=== PATIENT | female | born 1985 | race African-American/Black ===

== ENCOUNTER 2017-09-28 10:20 | Emergency (ER) | payer OTHER ==
[~2017-09-28] VITALS: Ht 152.4 cm; Wt 78.0 kg
[~2017-09-28 10:20] MED LIST: CLINTAB7 PO; MACR100C PO; Z.0.BCPILL PO
[2017-09-28 10:22] VITALS: BP 138/95; PULSE 82; RESP 16; TEMP 98.3; O2SAT 99
[2017-09-28 11:43] LABS: BACTERIA, URINE MOD /hpf; BLOOD, URINE SMALL (NEG); GLUCOSE,URINE NEG (NEG); KETONE, URINE NEG (NEG); NITRITE,URINE NEG (NEG); PH, URINE 6.5 (5.0-8.5); SQUAMOUS EPITHELIAL CELL URINE 31 /hpf (0-5); URINE COLOR LIGHT-YELLOW (YELLW/STRAW)
--- NOTE | 2017-09-28 12:57 | PD ---
HPI . left eye irritation, possible yeast infection Chief Complaint: Eye Problems/Injury Time Seen by Provider: 11:04 Travel History International Travel<30 days: No Contact w/Intl Traveler<30days: No Traveled to known affect area: No History of Present Illness HPI 32 year old female patient presents to the emergency department for evaluation of left eye irritation and possible yeast infection. Patient is a contact lens wearer. She denies any eye trauma or injury. She states her eye became irritated yesterday. Patient also reports yellow vaginal discharge and vaginal itchiness since last . Patient denies any new sexual partners. She is and they have unprotected sex regularly. Patient's only major medical history is asthma and she doesn't take any daily medications. PFSH Past Medical History Asthma: Yes Diminished Hearing: No Gastrointestinal Disorders: Yes (GB DISEASE) Respiratory: Yes (Asthma) ?: Not Past Surgical History Cholecystectomy: Yes Social History Alcohol Use: Yes (RARE) Tobacco Use: No Substance Use: No Allergies-Medications (Allergen,Severity, Reaction): Coded Allergies: No Known Allergies (Verified , 01/07/16) Reported Meds & Prescriptions Reported Meds & Active Scripts Active Review of Systems Except as stated in HPI: all other systems reviewed are Neg Physical Exam Narrative GENERAL: Well-nourished, well-developed 32 year old female patient in no acute distress. Nontoxic appearing. SKIN: Focused skin assessment warm/dry. HEAD: Normocephalic. Atraumatic. EYES: Left eye injected. Fluorescein dye uptake located between 12 o'clock and 1 o'clock over the iris, not in the central vision. PERRLA demonstrated, extraocular motions intact bilaterally. Visual acuity: Right eye 20/25, left eye 20/30 NECK: Supple, trachea midline. No JVD or lymphadenopathy. CARDIOVASCULAR: Regular rate and rhythm without murmurs, gallops, or rubs. RESPIRATORY: Breath sounds equal bilaterally. No accessory muscle use. GENITOURINARY: Normal external genitalia without lesions or erythema. Vaginal vault with yellow frothy drainage. Cervical os was closed. No cervical motion tenderness. Uterus nontender and nonenlarged. Bilateral adnexa nontender without masses. GASTROINTESTINAL: Abdomen soft, non-tender, nondistended. MUSCULOSKELETAL: No cyanosis, or edema. BACK: Nontender without obvious deformity. No CVA tenderness. Data Data Last Documented VS Vital Signs Date Time Temp Pulse Resp B/P (MAP) Pulse Ox O2 Delivery O2 Flow Rate FiO2 09/28/17 10:22 98.3 82 16 138/95 (109) 99 Orders Orders Ua Includes Microscopic (09/28/17 10:32) Ed Urine Pregnancytest Poc (09/28/17 10:32) Gc And Chlamydia Pcr (09/28/17 11:39) Wet Prep Profile (09/28/17 11:39) Proparacaine 0.5% Opth Soln (Alcaine 0.5 (09/28/17 13:00) Azithromycin Powd Pack (Zithromax Powd P (09/28/17 13:15) Ceftriaxone Inj (Rocephin Inj) (09/28/17 13:15) Lidocaine 1% Inj (50 Ml) (Xylocaine 1% I (09/28/17 13:15) Metronidazole (Flagyl) (09/28/17 13:15) Moxifloxacin 0.5% Opht Soln (Vigamox 0.5 (09/28/17 13:15) Labs Laboratory Tests Test 09/28/17 11:20 09/28/17 12:40 Urine Color LIGHT-YELLOW Urine Turbidity HAZY Urine pH 6.5 Urine Specific [place] 1.006 Urine Protein TRACE mg/dL Urine Glucose (UA) NEG mg/dL Urine Ketones NEG mg/dL Urine Occult Blood SMALL Urine Nitrite NEG Urine Bilirubin NEG Urine Urobilinogen LESS THAN 2.0 MG/DL Urine Leukocyte Esterase LARGE Urine RBC 48 /hpf Urine WBC 35 /hpf Urine Squamous Epithelial Cells 31 /hpf Urine Bacteria MOD /hpf Clue Cells (Wet Prep) NONE SEEN Vaginal Trichomonas (Wet Prep) PRESENT Vaginal Yeast (Wet Prep) NONE SEEN MDM Medical Decision Making Medical Screen Exam Complete: Yes Emergency Medical Condition: Yes Differential Diagnosis Differential diagnoses include but not limited to corneal abrasion, foreign body in the left eye, keratitis, yeast infection, STI Narrative Course 32-year-old female patient presents to emergency room for evaluation of yellow vaginal discharge and left eye irritation. Pelvic exam performed with nurse at bedside and cultures obtained and sent to lab. Proparacaine administered to left eye and fluorescein and Wood lamp used to evaluate left eye. Fluorescein dye uptake noted between the 12 o'clock and 1 o'clock position over the iris, not over the central vision. Pelvic cultures came back positive for Trichomonas. Patient will be treated with 2 g Flagyl by mouth in the ED and treated empirically with Rocephin and azithromycin for STI prophylaxis. Patient is a contact lens wearer. Patient will be discharged home with prescription for moxifloxacin opth solution for corneal abrasion and instructions to follow up with the local health department for further testing. Diagnosis Primary Impression: Trichomonas infection Additional Impression: Corneal abrasion Qualified Codes: S05.02XA - Injury of conjunctiva and corneal abrasion without foreign body, left eye, initial encounter Referrals: Primary Care Physician Patient Instructions: Corneal Abrasion (ED), General Instructions, Sexually Transmitted Diseases (ED), Trichomoniasis (ED) Additional Instructions: Please return to emergency department if your symptoms return or worsen. Follow up with your primary care provider. Administer moxifloxacin ophthalmic solution every 2 hours while awake for the next 2 days then every 4 hours while awake for the following 5 days. Follow-up with ophthalmology if symptoms persist. Do not wear contacts lenses until symptoms resolve. [facility] with [facility] for further STI testing. Med/Other Pt SpecificInfo: Prescription(s) given Scripts Moxifloxacin Opth Drops (Vigamox Opth Drops) 0.5 % Soln 1 DROP LEFT EYE Q2HR NEB for Infection, #1 BOTTLE 0 Refills Prov: Yuni Yu 09/28/17 Disposition: 01 DISCHARGE HOME Condition: Stable Yuni Yu Sep 28, 2017 12:57
[2017-09-28] MEDS ORDERED: PROPARACAINE HCL 0.5% OPHT SOLN 15 ML BTL LEFT EYE ONE (13:00)
[2017-09-28] MEDS ORDERED: AZITHROMYCIN PWD FOR SUSP 1 GM PACKET PO ONE (13:15)
[2017-09-28] MEDS ORDERED: metroNIDAZOLE 500 MG TAB PO ONE (13:15)
[2017-09-28] MEDS ORDERED: LIDOCAINE HCL 1% 50 ML VIAL IM ONE (13:15)
[2017-09-28] MEDS ORDERED: MOXIFLOXACIN 0.5% OPHT SOLN 3 ML BTL LEFT EYE ONE (13:15)
[2017-09-28] MEDS ORDERED: cefTRIAXone 250 MG VIAL IM ONE (13:15)
[2017-09-28] MEDS ORDERED: VIGA0.5D LEFT EYE (13:39)
[2017-09-28 14:38] LABS: CHLAMYDIA PCR NOT DETECTED (NOT DETECT); NEISSERIA PCR NOT DETECTED (NOT DETECT)
[2017-09-28] MEDS ORDERED: ACETAMINOPHEN 325 MG TAB PO ONE (14:45)
== END 2017-09-28 14:41 | disposition home or self-care (01) ==
LOC: NEPD 10:20
DX: A59.9 Trichomoniasis, unspecified (principal); S05.02XA Injury of conjunctiva and corneal abrasion without foreign body, left eye, initial encounter; X58.XXXA Exposure to other specified factors, initial encounter
CPT/HCPCS: 81001; 84703; 87210; 87491; 87591; 96372; 99285; J0696

== ENCOUNTER 2018-01-08 22:04 | Emergency (ER) | payer OTHER ==
[~2018-01-08 22:04] MED LIST changes: -CLINTAB7 PO; -MACR100C PO; +VIGA0.5D LEFT EYE; -Z.0.BCPILL PO
[2018-01-08 22:31] VITALS: BP 151/95; PULSE 84; RESP 16; TEMP 99; O2SAT 100
[2018-01-08 22:46] VITALS: BP 149/88; PULSE 96; RESP 18; O2SAT 100
[2018-01-08] MEDS ORDERED: LO LTAB PO (22:46)
[2018-01-08] MEDS ORDERED: FAMOTIDINE 20 MG/2 ML VIAL IV PUSH SCH (23:45)
[2018-01-08] MEDS ORDERED: ONDANSETRON HCL 4 MG/2 ML VIAL IV PUSH ONE (23:45)
[2018-01-09 00:15] LABS: AUTOMATED NEUTROPHIL # 4.3 TH/MM3 (1.8-7.7); BASOPHIL % 0.5 % (0.0-2.0); EOSINOPHIL # 0.1 TH/MM3 (0-0.4); EOSINOPHIL % 0.8 % (0.0-4.0); HEMATOCRIT 40.4 % (35.0-46.0); HEMOGLOBIN 13.7 GM/DL (11.6-15.3); LYMPH % 38.7 % (9.0-44.0); LYMPHOCYTE # 3.1 TH/MM3 (1.0-4.8); MEAN CORPUSCULAR HEMOGLOBIN 28.9 PG (27.0-34.0); MEAN PLATELET VOLUME 7.6 FL (7.0-11.0); MONO % 6.4 % (0.0-8.0); MONOCYTE # 0.5 TH/MM3 (0-0.9); NEUT % 53.6 % (16.0-70.0); PLATELET COUNT 334 TH/MM3 (150-450); RED BLOOD COUNT 4.75 MIL/MM3 (4.00-5.30); RED CELL DISTRIBUTION WIDTH 12.7 % (11.6-17.2)
[2018-01-09 00:23] LABS: ALBUMIN 3.5 GM/DL (3.4-5.0); ALT (GPT) 18 U/L (10-53); AST (GOT) 13 U/L (15-37); BICARBONATE 26.3 MEQ/L (21.0-32.0); BLOOD UREA NITROGEN 10 MG/DL (7-18); CALCIUM 8.3 MG/DL (8.5-10.1); CHLORIDE 104 MEQ/L (98-107); CREATININE 0.77 MG/DL (0.50-1.00); GLOMERULAR FILTRATION RATE 105 ML/MIN (>89); GLUCOSE,RANDOM 134 MG/DL (74-106); SODIUM (NA) 138 MEQ/L (136-145)
[2018-01-09 00:27] LABS: ALKALINE PHOSPHATASE 67 U/L (45-117); TOTAL BILIRUBIN ADULT 0.2 MG/DL (0.2-1.0); TOTAL PROTEIN 7.7 GM/DL (6.4-8.2); TROPONIN I LESS THAN 0.02 NG/ML (0.02-0.05)
--- NOTE | 2018-01-09 00:27 | RADRPT ---
EXAM DATE/TIME: 01/09/2018 00:15 [place] COMPARISON: No previous studies available for comparison. INDICATIONS : Patient complains of chest pain. MEDICAL HISTORY : Asthma. SURGICAL HISTORY : None. ENCOUNTER: Initial ACUITY: 2 days PAIN SCORE: 5/10 LOCATION: chest FINDINGS: A single view of the chest demonstrates the lungs to be symmetrically aerated without evidence of mas s, infiltrate or effusion. The cardiomediastinal contours are unremarkable. Osseous structures are intact. CONCLUSION: No evidence of acute cardiopulmonary disease. Federico Little MD on January 09, 2018 at 0:25 Board Certified Radiologist. This report was verified electronically.
[2018-01-09] MEDS ORDERED: FAMO1TAB37 PO (02:23)
--- NOTE | 2018-01-09 02:24 | PD ---
HPI Chief Complaint: Chest Pain Time Seen by Provider: 22:44 Travel History International Travel<30 days: No Contact w/Intl Traveler<30days: No Traveled to known affect area: No History of Present Illness HPI Patient developed chest pain earlier this day at about 10 AM at work it went off and on all day with substernal mid sternal. No radiation no nausea no vomit just felt strange off and on all day tightness. She has no history of cardiac illness she is no asthma she has no hypertension or diabetes no risk factors for acute coronary syndrome she is mildly obese and she has a family history of enlarged heart she says. Otherwise patient is healthy and no other complaint denies vomit denies diarrhea denies trauma denies heavy lifting denies any other source for straining a muscle she drank water and some saltines this morning which is not unusual for her to go without a serious [place] for work does not explain the possibility of gastritis or GERD PFSH Past Medical History Asthma: Yes Diminished Hearing: No Gastrointestinal Disorders: Yes (GB DISEASE) Respiratory: Yes (Asthma) ?: Not Past Surgical History Cholecystectomy: Yes Social History Alcohol Use: Yes (RARE) Tobacco Use: No Substance Use: No Allergies-Medications (Allergen,Severity, Reaction): Coded Allergies: hydromorphone (Verified Adverse Reaction, Unknown, TREMORS, 01/08/18) tramadol (Verified Adverse Reaction, Unknown, NAUSEA DIZZINESS, 01/08/18) Reported Meds & Prescriptions Reported Meds & Active Scripts Active Pepcid (Famotidine) 20 Mg Tab 20 Mg PO BID Reported Lo Loestrin Fe 1/10 (Norethindrone-Ethinyl Estradiol-Fe) 1-10 Mg-Mcg Tab 1 Tab PO DAILY Review of Systems Except as stated in HPI: all other systems reviewed are Neg Cardiovascular: Positive: Chest Pain or Discomfort Physical Exam Narrative GENERAL: aox3 non toxic appearing SKIN: Warm and dry. HEAD: Atraumatic. Normocephalic. EYES: Pupils equal and round. No scleral icterus. No injection or drainage. ENT: No nasal bleeding or discharge. Mucous membranes pink and moist. NECK: Trachea midline. No JVD. CARDIOVASCULAR: Regular rate and rhythm. RESPIRATORY: No accessory muscle use. Clear to auscultation. Breath sounds equal bilaterally. GASTROINTESTINAL: Abdomen soft, non-tender, nondistended. Hepatic and splenic margins not palpable. MUSCULOSKELETAL: Extremities without clubbing, cyanosis, or edema. No obvious deformities. NEUROLOGICAL: Awake and alert. No obvious cranial nerve deficits. Motor grossly within normal limits. Five out of 5 muscle strength in the arms and legs. Normal speech. PSYCHIATRIC: Appropriate mood and affect; insight and judgment normal. Data Data Last Documented VS Vital Signs Date Time Temp Pulse Resp B/P (MAP) Pulse Ox O2 Delivery O2 Flow Rate FiO2 01/09/18 02:34 86 16 126/70 (88) 100 Room Air 01/08/18 22:31 99.0 Orders Orders Famotidine Inj (Pepcid Inj) (01/08/18 23:45) Ondansetron Inj (Zofran Inj) (01/08/18 23:45) Complete Blood Count With Diff (01/08/18 23:38) Comprehensive Metabolic Panel (01/08/18 23:38) Troponin I (01/08/18 23:38) Lipase (01/08/18 23:38) Chest, Single Ap (01/08/18 23:38) Electrocardiogram (01/08/18 22:43) Labs Laboratory Tests Test 01/08/18 23:45 White Blood Count 8.0 TH/MM3 Red Blood Count 4.75 MIL/MM3 Hemoglobin 13.7 GM/DL Hematocrit 40.4 % Mean Corpuscular Volume 85.0 FL Mean Corpuscular Hemoglobin 28.9 PG Mean Corpuscular Hemoglobin Concent 34.0 % Red Cell Distribution Width 12.7 % Platelet Count 334 TH/MM3 Mean Platelet Volume 7.6 FL Neutrophils (%) (Auto) 53.6 % Lymphocytes (%) (Auto) 38.7 % Monocytes (%) (Auto) 6.4 % Eosinophils (%) (Auto) 0.8 % Basophils (%) (Auto) 0.5 % Neutrophils # (Auto) 4.3 TH/MM3 Lymphocytes # (Auto) 3.1 TH/MM3 Monocytes # (Auto) 0.5 TH/MM3 Eosinophils # (Auto) 0.1 TH/MM3 Basophils # (Auto) 0.0 TH/MM3 CBC Comment DIFF FINAL Differential Comment Blood Urea Nitrogen 10 MG/DL Creatinine 0.77 MG/DL Random Glucose 134 MG/DL Total Protein 7.7 GM/DL Albumin 3.5 GM/DL Calcium Level 8.3 MG/DL Alkaline Phosphatase 67 U/L Aspartate Amino Transf (AST/SGOT) 13 U/L Alanine Aminotransferase (ALT/SGPT) 18 U/L Total Bilirubin 0.2 MG/DL Sodium Level 138 MEQ/L Potassium Level 3.3 MEQ/L Chloride Level 104 MEQ/L Carbon Dioxide Level 26.3 MEQ/L Anion Gap 8 MEQ/L Estimat Glomerular Filtration Rate 105 ML/MIN Troponin I LESS THAN 0.02 NG/ML Lipase 238 U/L MDM Medical Decision Making Medical Screen Exam Complete: Yes Emergency Medical Condition: Yes Differential Diagnosis Patient could have acute cardiac syndrome versus GERD versus gastritis versus gallbladder disease Narrative Course Patient's EKG is normal sinus rhythm troponin is less than 0.02 negative Pepcid IV helps alleviate her symptoms she is observed in the ER heart rate is normal pressure is normal labs are all normal troponin is negative discharged home with follow-up as an outpatient will give her prescription for some Zofran and some Pepcid Diagnosis Primary Impression: Gastritis Qualified Codes: K29.70 - Gastritis, unspecified, without bleeding Patient Instructions: Gastritis (DC), Gastritis (ED), General Instructions Scripts Famotidine (Pepcid) 20 Mg Tab 20 MG PO BID, #20 TAB 0 Refills Prov: Anthony Jean MD 01/09/18 Anthony Jean MD Jan 09, 2018 02:24
[2018-01-09 02:34] VITALS: BP 126/70; PULSE 86; RESP 16; O2SAT 100
--- NOTE | 2018-01-10 22:48 | EKG ---
Date Performed: 01/08/2018 Time Performed: 22:43:34 PTAGE: 32 years EKG: Sinus rhythm WITH SINUS ARRHYTHMIA INCOMPLETE RIGHT BUNDLE BRANCH BLOCK BORDERLINE ECG NO PREVIOUS TRACING DOCTOR: Lebron Friend Interpretating Date/Time 01/10/2018 22:47:17
== END 2018-01-09 02:38 | disposition home or self-care (01) ==
LOC: NEPE 22:04
DX: K29.70 Gastritis, unspecified, without bleeding (principal); I49.8 Other specified cardiac arrhythmias; I45.10 Unspecified right bundle-branch block; E66.9 Obesity, unspecified; J45.909 Unspecified asthma, uncomplicated; Z87.19 Personal history of other diseases of the digestive system; Z88.5 Allergy status to narcotic agent; Z79.899 Other long term (current) drug therapy
CPT/HCPCS: 71045; 80053; 83690; 84484; 85025; 93005; 96374; 96375; 99284; J2405